=== PATIENT | male | born 1975 | race Caucasian/White ===

== ENCOUNTER 2017-05-29 08:33 | Emergency (ER) | payer OTHER ==
--- NOTE | 2017-05-29 08:44 | EDPHY ---
H & P HPI/ROS: Chief Complaint: Finger tip avulsion HPI: 42-year-old male was cutting onions with a mandoline when he sliced off the tip of his right middle finger. This happened this morning. Last tetanus was in the last 5 years. No other injuries. No other complaints at this time. ROS: 10 point Review of Systems is negative except as noted in the HPI. Physical Exam: General: Awake, alert, no acute distress Right hand: He has an avulsion of the tip of his right 3rd finger. It is to the capillary bed. There is no nail bed involvement. There is no exposed bony injury. No deep tissue injury. Sensations intact medial laterally. Skin: No rash Allergies/Adverse Reactions: acetaminophen [From Vicodin] Allergy (Verified 05/29/17 08:40) hydrocodone [From Vicodin] Allergy (Verified 05/29/17 08:40) Home Medications: Medication Instructions Recorded NK [No Known Home Meds] 05/29/17 Medical Decision Making ED Course/Re-evaluation: Patient dressed with a nonadherent dressing. Will be discharged with follow up with primary care physician as needed. Departure - Departure Disposition: Home, Routine, Self-Care Clinical Impression: Finger avulsion Condition: Good Instructions: Skin Avulsion (ED) Additional Instructions: Keep the area clean and dry. Follow up with your primary care physician in about a week for wound check. Return to the emergency depart for increasing redness, increasing pain, fevers, chills, streaking up your hand, or any other concerns.
[2017-05-29 08:45] VITALS: BP 125/75; PULSE 65; RESP 18; TEMP 98.2; O2SAT 95
== END 2017-05-29 09:01 | disposition home or self-care (01) ==
LOC: CED 08:33
DX: S61.202A Unspecified open wound of right middle finger without damage to nail, initial encounter (principal); W45.8XXA Other foreign body or object entering through skin, initial encounter